=== PATIENT | female | born 1990 | race Caucasian/White ===

== ENCOUNTER 2016-08-08 06:13 | Emergency (ER) | payer MEDICAID ==
[~2016-08-08] VITALS: Ht 170.2 cm; Wt 61.0 kg
[2016-08-08 06:15] VITALS: BP 162/82; PULSE 102; RESP 16; TEMP 97.7; O2SAT 99
[2016-08-08] MEDS ORDERED: IBUP800T23 PO (06:29)
[2016-08-08 06:30] VITALS: BP 131/79; PULSE 98; RESP 16; O2SAT 99
[2016-08-08] MEDS ORDERED: NAPR500T PO (07:08)
[2016-08-08] MEDS ORDERED: TRAM50TA PO (07:08)
[2016-08-08] MEDS ORDERED: PENI500T PO (07:08)
--- NOTE | 2016-08-08 07:08 | PD ---
HPI Chief Complaint: Facial Pain or Swelling Time Seen by Provider: 06:54 Travel History International Travel<30 days: No Contact w/Intl Traveler<30days: No Traveled to known affect area: No History of Present Illness HPI This is a 26 year old female who presents to the emergency department with right facial pain starting this morning initially as a burning, now as a dull soreness, constant, severe, associated with some numbness in the right side of her face. She has a known fractured tooth on her upper jaw which was supposed to be extracted however something fell through with paperwork and she wasn't having any trouble so she never got it done. She denies any associated fevers or chills. FORMERLY [facility], [facility] Past Medical History Narrative Medical Heart murmur Medical History: Denies Significant Hx Cardiovascular Problems: Yes (MURMUR) Tetanus Vaccination: < 5 Years Influenza Vaccination: No ?: Not LMP: NOW Past Surgical History Abdominal Surgery: Yes (PELLET REMOVED FROM ABDOMEN) Tonsillectomy: Yes Social History Alcohol Use: Yes (OCC) Tobacco Use: Yes (3/4 PPD) Substance Use: No (denies IV drug use) Allergies-Medications (Allergen,Severity, Reaction): Coded Allergies: Aspirin (Verified Allergy, Severe, TROUBLE BREATHING, 08/08/16) Reported Meds & Prescriptions Reported Meds & Active Scripts Active Reported Ibuprofen 800 Mg Tab 800 Mg PO Q4HR PRN Review of Systems Except as stated in HPI: all other systems reviewed are Neg Physical Exam Narrative GENERAL:Well appearing, no acute distress SKIN: Warm and dry. HEAD: Atraumatic. Normocephalic. EYES: Pupils equal and round. No injection or drainage. ENT: Moist mucous membranes. right upper pre-molar with old aden 3 fracture, exquisitely tender to light touch, mild fullness of the right maxilla NECK: Trachea midline. CARDIOVASCULAR: Regular rate and rhythm. No murmur appreciated. RESPIRATORY: Clear to auscultation. Breath sounds equal bilaterally. GASTROINTESTINAL: Abdomen soft, non-tender, nondistended. MUSCULOSKELETAL: No obvious deformities. NEUROLOGICAL: Awake and alert. No obvious cranial nerve deficits. Moving all extremities. PSYCHIATRIC: Appropriate mood and affect; insight and judgment normal. Data Data Last Documented VS Vital Signs Date Time Temp Pulse Resp B/P Pulse Ox O2 Delivery O2 Flow Rate FiO2 08/08/16 06:30 98 16 131/79 99 Room Air 08/08/16 06:15 97.7 [facility] Medical Decision Making Medical Screen Exam Complete: Yes Emergency Medical Condition: Yes Interpretation(s) afebrile, mild tachycardia, hypertensive Differential Diagnosis dental abscess, orbital cellulitis, margoth's angina Narrative Course This is a 26-year-old female who presents with right sided dental pain in the setting of a dental abscess associated with an old fractured tooth. She is very uncomfortable and tearful on exam. She was given morphine, Toradol, and will be discharged with pain control and antibiotics. Patient will follow up with a dentist as an outpatient. Diagnosis Primary Impression: Dental abscess Patient Instructions: General Instructions Additional Instructions: If you develop increasing swelling, fevers, chills, difficulty moving her eyes or difficulty swallowing return to the emergency room. Follow-up with a dentist as soon as possible. Med/Other Pt SpecificInfo: Prescription(s) given Scripts Penicillin V Potassium 500 Mg [id number] Mg PO Q6H 10 Days Prov:Rand Valladares MD 08/08/16 Naproxen 500 Mg Jod230 Mg PO BID PRN (PAIN SCALE 4 TO 10) #20 TAB Prov:Rand Valladares MD 08/08/16 Tramadol 50 Mg Tab50 Mg PO Q6H PRN (PAIN) #15 TAB Prov:Rand Valladares MD 08/08/16 Disposition: 01 DISCHARGE HOME Condition: Stable Rand Valladares MD Aug 08, 2016 07:08
[2016-08-08 07:11] VITALS: BP 143/98; PULSE 81; RESP 16; O2SAT 100
[2016-08-08] MEDS ORDERED: KETOROLAC TROMETHAMINE 30 MG/ML (IVP) VIAL IV PUSH ONE (07:15)
[2016-08-08] MEDS ORDERED: MORPHINE SULFATE 4 MG/ML INJ IV PUSH ONE (07:15)
== END 2016-08-08 07:38 | disposition home or self-care (01) ==
LOC: NEPC 06:13
DX: K04.7 Periapical abscess without sinus (principal); R01.1 Cardiac murmur, unspecified; F17.210 Nicotine dependence, cigarettes, uncomplicated
CPT/HCPCS: 96374; 96375; 99283; J1885; J2270